=== PATIENT | male | born 1945 | race Caucasian/White ===

== ENCOUNTER 2017-03-17 09:09 | Day surgery (SDC) | payer MEDICARE ==
--- NOTE | ~2017-03-17 | EGD ---
EGD REPORT [facility] [address] [place] [address] NAME: LUCRETIA FAIRBANKS : 43 [place] [facility] [place] [id number] AGE: 71 ADM/REG DATE : 03/17/17 MR#: [id number] REPORT SERV DATE: 03/17/17 DICTATED BY: IRAM RECIO DATE: 03/17/17 REPORT STATUS : Draft [facility]ANS[facility]ED [facility]: [facility] DATE: 03/17/17 Endoscopy Center Patient Name: Lucretia Fairbanks Date of : 1945 Attending MD: IRAM RECIO MD Procedure Date No Time: 03/17/2017 Procedure: Colonoscopy Indications: Colon cancer screening in patient at increased risk: Family history of colon polyps. Patient Profile: Informed consent was obtained from the patient by me prior to the procedure. Risks, benefits, and alternatives were discussed including the risk of bleeding, perforation, infection, reaction to medicine, missed lesion, and cardiopulmonary complications. Referring MD: SOLIS CASTRO Medicines: Monitored Anesthesia Care Complications: No immediate complications. Procedure: Pre-Anesthesia Assessment: - ASA Grade Assessment: III - A patient with severe systemic disease. After I obtained informed consent, the scope was passed under direct vision. Throughout the procedure, the patient's blood pressure, pulse, and oxygen saturations were monitored continuously. The CF [id number] was introduced through the anus and advanced to the ileocecal valve. Deep cecum not reached due to looping. The colonoscope was slowly withdrawn with careful examination all mucosal surfaces including specific attention around flexures and tip deflection behind folds; retroflexion performed in rectum. The colonoscopy was performed without difficulty. The patient tolerated the procedure well. The quality of the bowel preparation was adequate. The ileocecal valve and rectum were photographed. Findings: A frond-like/villous, fungating, infiltrative non-obstructing large mass was found in the proximal ascending colon. Biopsies were taken with a cold forceps for histology. Area was successfully injected with Elizabeth ink for tattooing submucosal and adjacent. Three sessile polyps were found in the rectum, in the descending colon and in the transverse colon. The polyps were 5 mm in size. These polyps were removed with a cold biopsy forceps. Resection and retrieval were complete. EGD REPORT [address] 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 Biopsied. Biopsied. Injected. - Three 5 mm polyps in the rectum, in the descending colon and in the transverse colon. Resected and retrieved. Recommendation: - Patient has a contact number available for emergencies. The signs and symptoms of potential delayed complications were discussed with the patient. Return to normal activities tomorrow. Written discharge instructions were provided to the patient. - Regular diet. - Continue present medications. - Await pathology results. - Repeat colonoscopy for surveillance based on pathology results. Procedure Code(s): --- Professional --- 01266, Colonoscopy, flexible, proximal to splenic flexure; with biopsy, single or multiple 25676, Colonoscopy, flexible, proximal to splenic flexure; with directed submucosal injection(s), any substance Diagnosis Code(s): --- Professional --- D49.0, Neoplasm of unspecified behavior of digestive system K62.1, Rectal polyp D12.4, Benign neoplasm of descending colon D12.3, Benign neoplasm of transverse colon Z12.11, Encounter for screening for malignant neoplasm of colon Z83.71, Family history of colonic polyps CPT copyright 2013 [employer]. All rights reserved. The codes documented in this report are preliminary and upon manager business process review may be revised to meet current compliance requirements. IRAM RECIO MD 03/17/2017 12:31 PM This report has been signed electronically. Number of Addenda: 0 Note Initiated On: 03/17/2017 11:57 AM EGD REPORT [facility] [address] [address] NAME: LUCRETIA FAIRBANKS : [birth year] [place] [facility] [place]#: [id number] AGE: 71 ADM/REG DATE : 03/17/17 MR#: [id number] REPORT SERV DATE: 03/17/17 DICTATED BY: IRAM RECIO DATE: 03/17/17 REPORT STATUS : Draft [facility]ANSCRIBED BY: [facility] DATE: 03/17/17 Scope Withdrawal Time 0 hours 13 minutes 7 seconds [address] [id number]
[~2017-03-17 09:09] MED LIST: ASAB PO; CELEXA20 PO; CRESTOR10 PO; FLOMAX4 PO; GLUCPH PO; HUMALOGPEN SC; HYZAAR 100/25 T1 TAB PO; JANUVIA100 MG PO; JARDI25B PO; LANTUS SC; LEVEMIR SC; VICTOZA18 MG/3 ML SC; VITAMIN D31000 UNIT PO
== END 2017-03-17 23:59 | disposition home or self-care (01) ==
LOC: DMU 09:09
PROVIDERS: Internal Medicine Gastroenterology
PROC: 0DBP8ZX Excision of Rectum, Via Natural or Artificial Opening Endoscopic, Diagnostic (ICD-10-PCS; 2017-03-17)
PROC: 3E0H8GC Introduction of Other Therapeutic Substance into Lower GI, Via Natural or Artificial Opening Endoscopic (ICD-10-PCS; 2017-03-17)
PROC: 0DBK8ZX Excision of Ascending Colon, Via Natural or Artificial Opening Endoscopic, Diagnostic (ICD-10-PCS; principal; 2017-03-17 10:30)
DX: Z12.11 Encounter for screening for malignant neoplasm of colon (principal); D12.2 Benign neoplasm of ascending colon; D12.4 Benign neoplasm of descending colon; K63.5 Polyp of colon; K62.1 Rectal polyp; E66.9 Obesity, unspecified; I10 Essential (primary) hypertension; E11.9 Type 2 diabetes mellitus without complications; E78.5 Hyperlipidemia, unspecified; G47.33 Obstructive sleep apnea (adult) (pediatric); Z88.0 Allergy status to penicillin; Z83.71 Family history of colonic polyps
CPT/HCPCS: 82962; 88305